=== PATIENT | female | born 1950 | race Caucasian/White ===

== ENCOUNTER 2021-03-01 05:20 | Day surgery (SDC) | payer MEDICARE, OTHER ==
[~2021-03-01] VITALS: Ht 163 cm; Wt 102.0 kg
[~2021-03-01 05:20] MED LIST: CIPRO500 MG PO; NORCO 7.5-3251 EACH PO; PANTOPRAZOLE SO40 MG PO; SYNTHROID88 MCG PO; VENTOLIN HFA18 GM INH; VITAMIN B-121000 MCG PO; VITAMIN D350 MCG PO
[2021-03-01] MEDS ORDERED: ASPIRIN325 MG PO (05:52)
[2021-03-01 06:46] LABS: BILIRUBIN NEGATIVE (NEGATIVE); BLOOD NEGATIVE Ery/uL (NEGATIVE); CLARITY CLEAR (CLEAR); COLOR YELLOW (YELLOW); GLUCOSE (U) NORMAL (NORMAL); LEUKOCYTES TRACE Leu/uL (NEGATIVE); NITRITE NEGATIVE (NEGATIVE); PROTEIN NEGATIVE (NEGATIVE); SPECIFIC GRAVITY >=1.030 (1.001-1.030); UROBILINOGEN 0.2 mg/dL (0.2-1.0); pH 5.5 (5.0-9.0)
[2021-03-01 07:06] LABS: BACTERIA 1+
--- NOTE | 2021-03-01 16:09 | NUR ---
MET WITH PT. SHE HAS A ROLLING WALKER AT HOME AND 11/09. SHE REQUESTED [facility] FOR REHAB, BUT THEY DO NOT HAVE A BED. HER SECOND CHOICE IS [facility]IGNATURE OF [facility] [phone]. CALE MARTINEZ IS THIRD CHOICE.
[2021-03-02 06:33] LABS: BASOPHIL 0.1 % (0-2); EOSINOPHIL 0.1 % (0-7); HCT 32.2 % (37.0-47.0); HGB 10.8 g/dl (12.5-16.0); LYMPHOCYTE 21.3 % (15-48); MCH 30.9 pg (25.0-31.0); MCHC 33.5 g/dL (32.0-36.0); MONOCYTE 10.4 % (0-12); MPV 9.7 fL (6.0-9.5); NEUTROPHIL 67.7 % (41-80); NRBC 0; PLT 283 K/uL (150-400); WBC 9.7 K/uL (4.0-10.5)
[2021-03-02 06:53] LABS: POTASSIUM 4.7 mmol/L (3.5-5.1)
[2021-03-02] MEDS ORDERED: VENTOLIN HFA18 GM INH (08:57)
[2021-03-02] MEDS ORDERED: XARELTO10 MG PO ×2 (08:57→14:46)
[2021-03-02] MEDS ORDERED: OXYCODONE-ACET1 EAC1 PO ×2 (08:57→14:42)
[2021-03-02] MEDS ORDERED: FEOSOL325 MG PO ×2 (08:57→14:43)
[2021-03-02] MEDS ORDERED: ZOFRAN4 M1 PO ×2 (08:57→14:46)
--- NOTE | 2021-03-02 10:48 | NUR ---
TC TO JAK [phone] AT [facility]. HE STATED THAT HE HAD NOT RECEIVED REFERRAL THROUGH [facility] AND REQUESTED THAT I FAX INFO TO HIM. FAXED CLINICALS TO [phone].
[2021-03-02] MEDS ORDERED: THERA TABLET400 MCG PO (14:46)
[2021-03-02] MEDS ORDERED: LAXATIVE SUPPOS10 MG PR (14:46)
[2021-03-02] MEDS ORDERED: STIMULANT LAXA1 EACH PO (14:46)
[2021-03-02] MEDS ORDERED: MILK OF MA400 MG/5 M PO (14:46)
[2021-03-02] MEDS ORDERED: DULCOLAX5 MG PO (14:46)
--- NOTE | 2021-03-02 14:46 | NUR ---
PT HAS BEEN ACCEPTED AT [facility]. REPORT NUMBER IS [phone] ASK FOR THE [facility]. FAX NUMBER FOR D/C SUMMARY IF BEFORE 5:00 FAX TO [phone] IF AFTER 5:00 FAX TO [phone]. PT HAS SIGNED THE CHOICE FORM
== END 2021-03-02 16:43 ==
LOC: FAS 05:20 → FMS 05:20 → FAS 07:00 → FMS 08:45 → FAS 03-02 16:43
PROVIDERS: Legal Medicine
DX: M17.12 Unilateral primary osteoarthritis, left knee (principal); M71.22 Synovial cyst of popliteal space [Baker], left knee; M25.462 Effusion, left knee; I10 Essential (primary) hypertension; K21.9 Gastro-esophageal reflux disease without esophagitis; E03.9 Hypothyroidism, unspecified; Z88.2 Allergy status to sulfonamides; R09.02 Hypoxemia; Z79.82 Long term (current) use of aspirin; E66.9 Obesity, unspecified; Z68.38 Body mass index [BMI] 38.0-38.9, adult; R06.83 Snoring; I45.10 Unspecified right bundle-branch block
CPT/HCPCS: 36415; 73560; 80048; 81001; 85025; 86850; 86900; 86901; 94010; 94640; 94762; 97110; 97162; 97166; 97530-GP; 97535; C1713; C1776; J0171; J0697; J1100; J1170; J1885; J2250; J2270; J2405; J2704; J2795; J3010; J7120